=== PATIENT | male | born 2000 | race Caucasian/White ===

== ENCOUNTER 2025-10-10 01:05 | Emergency (ER) | payer BC, SELFPAY ==
[2025-10-10 01:06] VITALS: BMI 26.3
[2025-10-10 01:09] VITALS: BP 160/80
--- NOTE | 2025-10-10 01:18 | ED.GENMED ---
History of Present Illness
General
Chief Complaint: Chest Problem
Source: patient
Exam Limitations: none
Time Seen by Provider: 10/10/25 01:15
Nursing documentation reviewed up to this point in time: agreed with
History of Present Illness
History of Present Illness:
25 y/o male with no pmh presents to the ER today with concerns of chest pain awakening him from sleep this morning. He describes the pain as sharp, stabbing pain in his chest that worsens with deep inhalation. He describes the pain as being located
slightly to the left side of the chest. The pain has been constant since awakening but is less severe now compared to earlier. He denies having associated symptoms such as fever, cough, or significant shortness of breath, though he has some trouble
taking deep breaths. There is no tenderness to palpation over the chest area. The patient reports a history of a previous, similar episode that resolved on its own. 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 He denies blunt trauma to the chest. He recently started antibiotics for a skin infection on his hand, which he described as a staphylococcal infection. He was started on these antibiotics by about two days ago, the infection seems
to be improving and marked the line of redness with a pen and some of the redness seems to be improving. He has not had any fevers or chills. The patient denies recent travel or any family history of heart disease. He is concerned about whether the
infection could have spread to his lungs. He has not tried anything for the pain.
Review of Systems
Review of Systems
All Other Systems: ROS reviewed and negative except as documented in HPI and ROS
Phy Exam
Physical Exam
Physical Exam:
General: Patient is well appearing and in no acute distress; non-toxic
Skin: Warm and dry, erythema noted to the posterior aspect of the left hand with very small fluctuant mass, no streaking up the arm
Head: Normocephalic, atraumatic
Eyes: Sclera non-icteric. EOMs intact.
Cardiac: Regular rate and rhythm, no murmurs, no tenderness to palpation of the external chest wall
Peripheral Vascular: No lower extremity swelling or edema
Pulm: Normal respiratory effort, no wheezes, rales, or rhonchi
Abdomen: No abdominal tenderness to palpation
Neuro: CN II-XII intact, no focal neurologic deficits.
Psychiatric: Appropriate mood and affect.
Course
Orders/Labs/Results
Orders:
Orders
10/10/25 01:26
Electrocardiogram (*1) Stat
Reason for Study: Other
Other Reason for Exam: chest pain
EKG- Treatment ONCE
CR Chest - 2 Views Urgent
Comment:
Reason For Exam: left sided chest pain
10/10/25 02:03
Complete Blood Count/With Diff Urgent
Comprehensive Metabolic Panel Urgent
D-Dimer Urgent
Troponin I Urgent
10/10/25 04:30
Troponin I Urgent
Abnormal Lab Results
10/10/25
02:03
WBC 4.0 L 10^3/uL
(4.8-10.8)
Monocytes % 15.5 H %
(1.7-9.3)
Albumin 5.1 H g/dl
(3.5-5.0)
10/10/25 02:03
10/10/25 02:03
Vital Signs
Initial and Last Documented VS:
Initial Vital Signs
Temp Pulse Resp BP Pulse Ox
97.8 F 94 18 160/80 100
10/10/25 01:09 10/10/25 01:09 10/10/25 01:09 10/10/25 01:09 10/10/25 01:09
Last Documented Vital Signs
Temp Pulse Resp BP Pulse Ox
97.8 F 70 17 117/65 98
10/10/25 01:09 10/10/25 02:15 10/10/25 02:15 10/10/25 02:10 10/10/25 02:15
MDM/Problems Addressed
Differential Diagnosis Includes:
ddx include chest wall strain, costochondritis, pneumothorax, ACS, PE, GERD
MDM/Problems Addressed:
25 y/o male with no pmh presents to the ER today with concerns of chest pain awakening him from sleep this morning. He describes the pain as sharp, stabbing pain in his chest that worsens with deep inhalation. He describes the pain as being located
slightly to the left side of the chest. He has no DVT or PE risk factors. 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 On physical exam, he is well-appearing in no acute
distress. There is no reproducible chest pain, his heart is regular rate with no murmurs, lungs are clear bilaterally. His rule out for ACS. His D-dimer is undetectable. His chest x-ray is unremarkable. Patient is declining Toradol for pain
management at this time. Patient states that he feels comfortable will continue monitor his symptoms at home. Patient was particular concerned about an infection he has had on his hand potentially spreading to his chest however patient has not had
any fevers, any coughing, there is no leukocytosis no on blood work. Per patient, redness does seem to be improving with the clindamycin. There is a small fluctuant mass not yet amenable to drainage. Discussed use of warm compress. Ddiscussed
strict return precautions. Discussed reassessment with primary to ensure infection is improving. Patient stable for discharge.
Chronic conditions affecting care:
n/a
*Pulse Oximetry
SaO2: 100
Oxygen Mode of Delivery: Room air
Patient hypoxic: no
*Critical Care Note
Total Time (30-74mins, 75-104mins- exclusive of procedures): Not Applicable
ED Attending Note
-
Portions of this chart may have been created with voice recognition software.� Occasional wrong word or��sound alike� substitutions may have occurred due to the inherent limitations of voice recognition software.
Discharge Plan
Departure
Patient Disposition: Home (Routine Discharge)
Date of Disposition: 10/10/25
Time of Disposition: 06:02
Patient with high blood pressure during this ER visit?: Yes
Condition: Good
Discharge Problem:
Chest pain
Instructions: Chest Pain (DC), BLOOD PRESSURE
Referrals:
Oren Quan DO [Family Provider, Family Practice]
Activity Restrictions/Additional Instructions:
Please follow up with primary care provider in one week for reassessment.
PLEASE RETURN TO THE ER SHOULD YOU DEVELOP AN ACUTE WORSENING OR RETURN OF YOUR SYMPTOMS, SHORTNESS OF BREATH, FEVERS OR CHILLS, INTRACTABLE NAUSEA OR VOMITING, OR ANY OTHER SIGNS OR SYMPTOMS WORRISOME TO YOU
Interventions
Interventions:
*Risk Screen - Suicide Last Done: 10/10/25 01:09
*General Assessment Last Done: 10/10/25 02:18
*Neglect/Abuse Screening Last Done: 10/10/25 01:09
*ED- Fall Risk Assessment Last Done: 10/10/25 02:18
*ED COVID-19 Vaccine History Last Done: 10/10/25 02:18
*ED Influenza Vaccine History Last Done: 10/10/25 02:18
*Nursing Disposition Last Done: 10/10/25 06:19
ED- Cardiac Assessment Last Done: 10/10/25 01:47
ED- Pulmonary Assessment Last Done: 10/10/25 01:47
Discharge Date and Time
Discharge Date/Time: 10/10/25 06:22
Print Language: ESTONIAN
[2025-10-10 02:10] VITALS: BP 117/65
[2025-10-10 02:12] LABS: Hematocrit 46.4 % (39.0-52.0); Hemoglobin 16.2 g/dL (13.0-18.0); Mean Corp Hgb Conc. 34.9 g/dL (33.0-37.0); Mean Corpuscular Volume 88.2 fL (80.0-94.0); Nucleated Red Blood Cells % 0 % (-); Platelet Count 211 10^3/uL (130-400); Red Cell Dist. Width 12.0 % (11.5-14.5)
[2025-10-10 02:36] LABS: ALT (SGPT) 28 U/L (0-50); AST (SGOT) 27 U/L (17-59); Albumin 5.1 g/dl (3.5-5.0); Alkaline Phosphatase 80 U/L (38-126); Blood Urea Nitrogen 15 mg/dl (9-20); Calcium 10.0 mg/dl (8.4-10.2); Carbon Dioxide 27 mmol/L (22-30); Chloride 103 mmol/L (98-107); Estimated Creatinine Clearance 116 ml/min; Glucose 96 mg/dl (70-99); Potassium 4.1 mmol/L (3.5-5.1); Sodium 137 mmol/L (135-145); Total Protein 8.2 g/dl (6.3-8.2); eGFR > 60.00
[2025-10-10 02:54] LABS: Troponin I 0.016 ng/ml
[2025-10-10 03:02] LABS: D-Dimer < 0.27 ug/mlFEU (0.00-0.50)
[2025-10-10 05:54] LABS: Troponin I 0.014 ng/ml
== END 2025-10-10 06:22 | disposition home or self-care (01) ==
LOC: EMR 01:05
PROVIDERS: Physician Assistant; EMERGENCY PHYSICIAN Student in an Organized Health Care Education/Training Program; FAMILY PHYSICIAN Family Medicine
DX: R07.89 Other chest pain (principal); R22.2 Localized swelling, mass and lump, trunk
CPT/HCPCS: 99285; 71046; 80053; 84484; 85025; 85379; 93005